=== PATIENT | female | born 1995 | race Caucasian/White ===

== ENCOUNTER 2018-04-16 20:20 | Emergency (ER) | payer BC ==
[2018-04-16] MEDS ORDERED: Ondansetron TAB* 4 MG PO ONE (20:49)
[2018-04-16] MEDS ORDERED: NS 0.9% 1000 ML* 1,000 ML IV ONE (21:14)
[2018-04-16] MEDS ORDERED: diPHENhydraMINE IV* 50 MG/ML 1 ml VIAL (BENADRYL) IV ONE (21:15)
[2018-04-16] MEDS ORDERED: PROCHLORPERAZINE INJ 5 MG/ML 2 ML VIAL IV ONE (21:15)
[2018-04-16] MEDS ORDERED: Ketorolac INJ* 30 MG/ML 1 ML VIAL IV PUSH ONE (21:15)
--- NOTE | 2018-04-16 22:55 | ED ---
Headache - HPI Summary HPI Summary: The pt is a 22 y.o female presenting to the [facility] with a chief complaint of NATHAN. The pt is accompanied by her boyfriend and reports that she has a hx of migraines but this episode is worse than normal. Allergies are noted and reviewed. She describes the NATHAN as constant and the origin of the NATHAN at the " back of the head" which later radiated towards the front of the head. Currently , the NATHAN is diffuse. She has not had a prior ED visit for similar symptoms. Pt denies fevers, current blurry visions, double visions, abd pain, N/V, chest pain , SOB, back pain, sore throat, ear ache, hematuria, burning sensation when urinating, and rashes. She reports of chills, anxiety and depression (she is receiving treatment). The patient rates the pain 7/10 in severity. Symptoms aggravated by nothing. Symptoms alleviated by nothing. - History Of Current Complaint Chief Complaint: EDHeadache Stated Complaint: HEADACHE Time Seen by Provider: 04/16/18 20:57 Hx Obtained From: Patient Onset/Duration: Sudden Onset - 3 hours ago today Initially Headache Was: Initial Pain Scale(0-10)= - 7 Currently Pain Is: Current Pain Scale(0-10)= - 7 Location of Headache: Diffuse Aggravating Factor: Nothing Allevating Factors: Nothing - Allergies/Home Medications Allergies/Adverse Reactions: Allergies Allergy/AdvReac Type Severity Reaction Status Date / Time No Known Allergies Allergy Verified 06/24/15 16:58 PMH/Surg Hx/FS Hx/Imm Hx Sensory History: Denies: Hx Deafness Opthamlomology History: Denies: Hx Legally Blind EENT History: Denies: Hx Deafness Psychiatric History: Reports: Hx Anxiety, Hx Depression - Immunization History Date of Tetanus Vaccine: utd Date of Influenza Vaccine: none Infectious Disease History: No Infectious Disease History: Denies: Traveled Outside the [place] in Last 30 Days - Family History Family History: Reviewed and noncontributory - Social History Occupation: Student Alcohol Use: Rare Substance Use Type: Reports: None Smoking Status (MU): Never Smoked Tobacco Review of Systems Positive: Chills. Negative: Fever Eyes: Other - Negative double vision Negative: Blurred Vision Negative: Sore Throat, Ear Ache Negative: Chest Pain Negative: Shortness Of Breath Negative: Vomiting, Nausea Negative: burning, hematuria Musculoskeletal: Other - Negative back pain Negative: Rash Positive: Headache Positive: Anxious, Depressed All Other Systems Reviewed And Are Negative: No Physical Exam - Summary Physical Exam Summary: Appearance: Alert, conversive, nontoxic appearing Skin: Warm, dry, no mottling, no rashes, no contusions HEENT: EOMI, PERRL, moist mucous membranes Neck: No masses on the neck, supple Respiratory: Clear to auscultation, breath sounds present, no rales, no rhonchi , no wheezes Cardiovascular: RRR, pulses are symmetrical in both lower and upper extremities Abdomen: Soft, non-tender Bowel Sounds: Present Musculoskeletal: No CVA tenderness, no obvious deformity, moving all extremities in a grossly normal manner Neurological: A&Ox3, CN II-XII Intact, moving all extremities symmetrically Psychiatric: Normal affect and mood Triage Information Reviewed: Yes Vital Signs On Initial Exam: Initial Vitals Temp Pulse Resp BP Pulse Ox 98.4 F 89 15 114/78 98 04/16/18 20:23 04/16/18 20:23 04/16/18 20:23 04/16/18 20:23 04/16/18 20:23 Vital Signs Reviewed: Yes Diagnostics - Vital Signs Vital Signs Temp Pulse Resp BP Pulse Ox 04/16/18 20:23 98.4 F 89 15 114/78 98 - Laboratory Lab Statement: Any lab studies that have been ordered have been reviewed, and results considered in the medical decision making process. Headache Course/Dx - Course Course Of Treatment: The pt is 22 y.o female with a chief complaint of NATHAN. The pt has a hx of migraines and she states that this episode is worse than previous episodes. The pt will be signed out to Dr. Umana pending lab work and blood work as well as any imaging tests. The pt dx will be migraines. - Diagnoses Provider Diagnoses: Migraines Discharge - Sign-Out/Discharge Documenting (check all that apply): Sign-Out Patient Signing out patient TO: Rai Umana - Discharge Plan Condition: Stable Referrals: No Primary Care Phys,NOPCP [Primary Care Provider] - - Attestation Statements Document Initiated by Scribe: Yes Documenting Scribe: Zack Foote Provider For Whom Scribe is Documenting (Include Credential): Dr. Myrtle Johnson Scribe Attestation: Zack Shi, scribed for Dr. Myrtle Johnson on 04/16/18 at 2253.
--- NOTE | 2018-04-16 23:26 | ED ---
Course/Dx - Course Course Of Treatment: The pt is 22 y.o female with a chief complaint of NATHAN. The pt has a hx of migraines and she states that this episode is worse than previous episodes. The pt will be signed out to Dr. Umana pending lab work and blood work as well as any imaging tests. The pt dx will be migraines. - Diagnoses Provider Diagnoses: Migraines, Headache Discharge - Sign-Out/Discharge Documenting (check all that apply): Patient Departure - discharge, Receiving Sign-Out Receiving patient FROM: Myrtle Johnson - Discharge Plan Condition: Stable Disposition: HOME Patient Education Materials: General Headache (ED) Referrals: [facility] [Provider Group] - 3 Days Additional Instructions: Return to the emergency department for any new or worsening symptoms. - Billing Disposition and Condition Condition: STABLE Disposition: Home - Attestation Statements Document Initiated by Lenin: Yes Documenting Scribe: Antwan Cuba Provider For Whom Scribe is Documenting (Include Credential): Dr. Rai Umana MD Scribe Attestation: Antwan Shi scribed for Dr. Rai Umana MD on 04/17/18 at 0016. Scribe Documentation Reviewed: Yes Provider Attestation: The documentation as recorded by the Antwan biswas accurately reflects the service I personally performed and the decisions made by , Dr. Rai Umana MD
[2018-04-16 23:41] VITALS: BP 113/78
== END 2018-04-16 23:41 | disposition home or self-care (01) ==
LOC: ED 20:20
DX: G43.909 Migraine, unspecified, not intractable, without status migrainosus (principal)
CPT/HCPCS: 96374; 96375; 99283; A9270-GY; J0780; J1200; J1885

== ENCOUNTER 2018-10-07 13:48 | Emergency (ER) | payer BC ==
--- NOTE | 2018-10-07 14:21 | ED ---
HPI Chest Pain - HPI Summary HPI Summary: This patient is a 23 year old F presenting to [facility] with a chief complaint of intermittent chest pain since 3 days ago. Patient reports that the pain is usually all over but is currently on the right side. The pain lasts anywhere from 1-4 hours and does not radiate. The patient rates the pain 4/10 in severity currently but a 9/10 in severity at its worst. Symptoms aggravated by deep breaths. Patient reports SOB. She has an IUD and has no PMHx of blood clots. Patient has a PSHx of wisdom teeth removal. NKDA. FHx of father having A Fib. - History of Current Complaint Chief Complaint: EDChestPainROMI Time Seen by Provider: 10/07/18 14:08 Hx Obtained From: Patient Onset/Duration: Started Days Ago - 3 days ago, Still Present Timing: Intermittent, Lasting Hours - 1-4 hours Initial Severity: Severe - 9/10 Current Severity: Moderate Pain Intensity: 4 Pain Scale Used: 0-10 Numeric Chest Pain Location: Diffuse - usually, Right Anterior - currently Chest Pain Radiates: No Aggravating Factor(s): Deep Breaths Associated Signs and Symptoms: Positive: Shortness of Breath - Allergy/Home Medications Allergies/Adverse Reactions: Allergies Allergy/AdvReac Type Severity Reaction Status Date / Time No Known Allergies Allergy Verified 06/24/15 16:58 PMH/Surg Hx/FS Hx/Imm Hx Sensory History: Denies: Hx Legally Blind, Hx Deafness Opthamlomology History: Denies: Hx Legally Blind Psychiatric History: Reports: Hx Anxiety, Hx Depression - Surgical History Surgery Procedure, Year, and Place: [place] teeth extraction - Immunization History Date of Tetanus Vaccine: utd Date of Influenza Vaccine: 08/2018 Immunizations Up to Date: Yes Infectious Disease History: No Infectious Disease History: Denies: Traveled Outside the [place] in Last 30 Days - Family History Known Family History: Positive: Cardiac Disease - A Fib in father Family History: Reviewed and noncontributory - Social History Alcohol Use: Rare Substance Use Type: Reports: None Smoking Status (MU): Never Smoked Tobacco Review of Systems Positive: Chest Pain - usually all over but is currently on the right side Positive: Shortness Of Breath All Other Systems Reviewed And Are Negative: Yes Physical Exam - Summary Physical Exam Summary: GENERAL: Patient is a well-developed and nourished __(F)__ who is lying comfortable in the stretcher. Patient is not in any acute respiratory distress. HEAD AND FACE: Normocephalic EYES: PERRLA, EOMI x 2. EARS: Hearing grossly intact. MOUTH: Oropharynx within normal limits. NECK: Supple, trachea is midline, no adenopathy, no JVD, no carotid bruit. CHEST: Symmetric, tenderness over the right rib under the right breast LUNGS: Clear to auscultation bilaterally. No wheezing or crackles. CVS: Regular rate and rhythm, S1 and S2 present, no murmurs or gallops appreciated. ABDOMEN: Soft, non-tender. Bowel sounds are normal. No abdominal abnormal pulsations. EXTREMITIES: Full ROM in all major joints, no edema, no cyanosis or clubbing. NEURO: Alert and oriented x 3. No acute neurological deficits. Speech is normal and follows commands. SKIN: Dry and warm Triage Information Reviewed: Yes Vital Signs On Initial Exam: Initial Vitals Temp Pulse Resp BP Pulse Ox 97.8 F 92 18 127/68 100 10/07/18 13:51 10/07/18 13:51 10/07/18 13:51 10/07/18 13:51 10/07/18 13:51 Vital Signs Reviewed: Yes Diagnostics - Vital Signs Vital Signs Temp Pulse Resp BP Pulse Ox 10/07/18 13:51 97.8 F 92 18 127/68 100 - Laboratory Result Diagrams: 10/07/18 14:20 10/07/18 14:20 Lab Statement: Any lab studies that have been ordered have been reviewed, and results considered in the medical decision making process. - Radiology Chest x-ray Radiology Interpretation Completed By: Radiologist Summary of Radiographic Findings: 14:20. NO ACTIVE CARDIOPULMONARY DISEASE. ED Physician has reviewed this imaging report. - EKG 14:05 Cardiac Rate: NL - 75 BPM EKG Rhythm: Sinus Rhythm Summary of EKG Findings: Normal axis, normal intervals, no ischemic changes Chest Pain Course/Dx - Course Course Of Treatment: This patient is a 23 year old F presenting to [facility] with a chief complaint of intermittent chest pain since 3 days ago. Physical exam: tenderness over the right rib, under the right breast. EKG: normal rate, normal sinus, 75 bpm, normal axis, normal intervals, no ischemic changes. Chest x-ray: no active cardiopulmonary disease. Lab results were normal other than Lactic Acid 0.4 L. I discussed results with patient and she reports feeling better. She is hemodynamically stable and safe for discharge. She will be d/c home with dx of costochondritis. Strict return precautions given and she will otherwise follow up with her PCP. Advised her to take Motrin OTC. - Diagnoses Provider Diagnoses: Costochondritis Discharge - Sign-Out/Discharge Documenting (check all that apply): Patient Departure - D/C home Patient Received Moderate/Deep Sedation with Procedure: No - Discharge Plan Condition: Stable Disposition: HOME Patient Education Materials: Costochondritis (ED) Referrals: [facility] [Outside] - 3 Days Additional Instructions: Follow up with your primary care physician in 1-3 days. RETURN TO THE EMERGENCY DEPARTMENT FOR CHANGING OR WORSENING SYMPTOMS. - Billing Disposition and Condition Condition: STABLE Disposition: Home - Attestation Statements Document Initiated by Nareshibe: Yes Documenting Scribe: Ruel Eubanks Provider For Whom Scribe is Documenting (Include Credential): Terrence Kaiser MD Scribe Attestation: Ruel Shi, scribed for Terrence Kaiser MD on 10/07/18 at 1803. Scribe Documentation Reviewed: Yes Provider Attestation: The documentation as recorded by the Ruel biswas accurately reflects the service I personally performed and the decisions made by , Terrence Kaiser MD Status of Scribe Document: Viewed
[2018-10-07 14:39] LABS: ABS Basophils 0.1 10^3/ul (0-0.2); ABS Eosinophils 0.1 10^3/ul (0-0.6); ABS Lymphocytes 1.5 10^3/ul (1.0-4.8); ABS Monocytes 0.4 10^3/ul (0-0.8); ABS Neutrophils 1.9 10^3/ul (1.5-7.7); ABS Nucleated RBC 0 10^3/ul; Eosinophil % 2.3 %; Hematocrit 37 % (33-41); Hemoglobin 12.3 g/dL (12.0-16.0); Lymphocyte % 38.9 %; Mean Corpuscular HGB Conc 34 g/dL (31-36); Mean Corpuscular Hemoglobin 30 pg (27-31); Mean Corpuscular Volume 89 fL (80-97); Mean Platelet Volume 7.4 fL (7.4-10.4); Nucleated Red Blood Cells % 0.1; Platelet Count 277 10^3/uL (150-450); Red Cell Distribution Width 14 % (10.5-15); White Blood Count 3.9 10^3/uL (3.5-10.8)
--- OUTSIDE RECORDS SUMMARY | 2018-10-07 14:39 | XMS REPORT | Continuity of Care Document ---
:1995 External Reference #:[id number] Author Name FelixtrishLennie Care Team Providers Name Role Phone Jordyn Soto N.P. 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 Payers Date Identification Numbers Payment Provider Subscriber Policy Number: [id number] [employer] Dawna Gagnon PayID: [id number] [address] [address] [place] [address] Advance Directives Description No Information Available Problems Description No Information Family History Date Family Member(s) Observation Comments Father Anxiety Father Hypertension Mother Anxiety First Brother PTSD First Brother Depression Maternal Grandfather Atrial Fibrillation Maternal Grandfather Anxiety Maternal Grandmother Anxiety Social History Type Date Description Comments Sex Unknown Lives With Roommate Tobacco Use Start: Unknown Never Smoked Cigarettes ETOH Use Currently consumes 1-2 drinks per week alcohol Tobacco Use Start: Unknown Patient has never smoked Smoking Status Reviewed: 09/14/18 Patient has never smoked Exercise Does not exercise Type/Frequency Allergies, Adverse Reactions, Alerts Description No Known Drug Allergies Medications Medication Date Status Form Strength Qnty SIG Indications Ordering Provider Celexa Active Tablets 20mg 1 by Unknown 00 mouth every day Hydroxyzine HCL Active Tablets 10mg 1-2 by Unknown 00 mouth four times a day Immunizations Description No Information Available Vital Signs Date Vital Result Comment 09/14/2018 9:08am Height 67 inches 5'7" Weight 150.00 lb had heavy boots on Heart Rate 95 /min BP Systolic 102 mmHg BP Diastolic 69 mmHg O2 % BldC Oximetry 99 % BMI (Body Mass Index) 23.5 kg/m2 Last Menstrual Period [id number] Results Description No Information Available Procedures Description No Information Available Encounters Description No Information Available Plan of Treatment No Information Available
[2018-10-07 14:43] LABS: Activated Partial Thrombo Time 29.9 seconds (26.0-36.3); INR 0.98 (0.77-1.02)
[2018-10-07 14:49] LABS: ALT 17 U/L (7-52); AST 19 U/L (13-39); Albumin 4.3 g/dL (3.2-5.2); Albumin/Globulin Ratio 1.7 (1-3); Alkaline Phosphatase 57 U/L (34-104); Anion Gap 5 mmol/L (2-11); BUN/Creatinine Ratio 12.9 (8-20); Blood Urea Nitrogen 9 mg/dL (6-24); CO2 Carbon Dioxide 24 mmol/L (22-32); Calcium 9.2 mg/dL (8.6-10.3); Chloride 108 mmol/L (101-111); EGFR African American 127.8 (>60); EGFR Non-African American 105.6 (>60); Globulin 2.6 g/dL (2-4); Glucose 91 mg/dL (70-100); Sodium 137 mmol/L (135-145); Total Protein 6.9 g/dL (6.4-8.9)
[2018-10-07 14:52] LABS: HCG Pregnancy < 0.60 mIU/mL
[2018-10-07] MEDS ORDERED: Ketorolac INJ* 60 MG/2 ML VIAL IM ONE (15:00)
[2018-10-07 15:38] VITALS: BP 104/66
== END 2018-10-07 15:38 | disposition home or self-care (01) ==
LOC: ED 13:48
DX: M94.0 Chondrocostal junction syndrome [Tietze] (principal); R06.02 Shortness of breath; Z82.49 Family history of ischemic heart disease and other diseases of the circulatory system
CPT/HCPCS: 36415; 71045; 80053; 83605; 83880; 84484; 84702; 85025; 85379; 85610; 85730; 93005; 96372; 99282; J1885

== ENCOUNTER 2019-02-12 13:00 | Emergency (ER) | payer BC ==
--- OUTSIDE RECORDS SUMMARY | 2019-02-12 13:09 | XMS REPORT | Continuity of Care Document ---
:1995 External Reference #:[id number] Author Name Geno Walden Care Team Providers Name Role Phone Jeanette Cabrera MD Primary Care Physician Unavailable Payers Date Identification Numbers Payment Provider Subscriber Policy Number: [id number] [facility] Polo Gagnon JR PayID: [id number] [address] [address] [place] [address] Effective: 2018 Policy Number: [id number] [facility] Polo Vaz Jr. Group Number: [id number] [address] PayID: [id number] [place] [address] Family History Date Family Member(s) Observation Comments Father Anxiety Father Hypertension Mother Anxiety Siblings 1 First Brother PTSD First Brother Depression Maternal Grandfather Atrial Fibrillation Maternal Grandfather Anxiety Maternal Grandmother Anxiety Social History Type Date Description Comments Sex Unknown Lives With Roommate Tobacco Use Start: Unknown Never Smoked Cigarettes ETOH Use Currently consumes 1-2 drinks per week alcohol Tobacco Use Start: Unknown Patient has never smoked Recreational Drug Use Never Used Drugs Smoking Status Reviewed: 09/14/18 Patient has never smoked Exercise Type/Frequency Does not exercise Exercise Type/Frequency Exercises regularly Exercise Type/Frequency Exercises rarely Allergies, Adverse Reactions, Alerts Description No Known Drug Allergies Medications Active Medications SIG Qnty Indications Ordering Provider Date Citalopram 1 by mouth 90tabs Pina Billingsley MD 02/07/2019 Hydrobromide every day 20mg Tablets Hydroxyzine HCL 1-2 by mouth Unknown 10mg four times a Tablets day Magnesium 27 Unknown 500(27Mg) mg Tablets Multivitamin Adult Unknown Tablets History Medications Celexa 1 by mouth every 90tabs Pina Billingsley MD - 20mg Tablets day 02/07/2019 Vital Signs Date Vital Result Comment 02/07/2019 8:22am Height 67 inches 5'7" Weight 159.00 lb Heart Rate 68 /min BP Systolic 95 mmHg right arm BP Diastolic 60 mmHg right arm Body Temperature 96.5 F O2 % BldC Oximetry 99 % BMI (Body Mass Index) 24.9 kg/m2 09/14/2018 9:08am Height 67 inches 5'7" Weight 150.00 lb had heavy boots on Heart Rate 95 /min BP Systolic 102 mmHg BP Diastolic 69 mmHg O2 % BldC Oximetry 99 % BMI (Body Mass Index) 23.5 kg/m2 Last Menstrual Period [id number] Results Test Date Facility Test Result H/L Range Note Laboratory test 09/14/2018 [facility] TSH 1.28 mcIU/mL N 0.34- 5.[address] ([place] [address] Stim Horm) [phone] Prolactin 11.3 ng/mL N 1.0-25.0 CBC Auto Diff 09/14/2018 [facility] White Blood 4.2 10^3/uL N 3.5-10.[address] [place] [address] [phone] Red Blood Count 4.23 10^6/uL N 4.00-5.40 Hemoglobin 12.8 g/dL N 12.0-16.0 Hematocrit 38 % N 35-47 Mean Corpuscular Volume 90 fL N 80-97 Mean Corpuscular Hemoglobin 30 pg N 27-31 Mean Corpuscular HGB Conc 34 g/dL N 31-36 Red Cell Distribution Width 13 % N 10.5-15 Platelet Count 301 10^3/uL N 150-450 Mean Platelet Volume 7.8 fL N 7.4-10.4 Abs Neutrophils 1.6 10^3/uL N 1.5-7.7 Abs Lymphocytes 1.9 10^3/uL N 1.0-4.8 Abs Monocytes 0.5 10^3/uL N 0-0.8 Abs Eosinophils 0.1 10^3/uL N 0-0.6 Abs Basophils 0.1 10^3/uL N 0-0.2 Abs Nucleated RBC 0 10^3/uL Granulocyte % 38.7 % Lymphocyte % 45.6 % Monocyte % 11.7 % Eosinophil % 2.4 % Basophil % 1.6 % Nucleated Red Blood Cells % 0 Encounters Type Date Location Provider Dx Diagnosis Office Visit 09/14/2018 [facility] Jordyn Soto N.P. N94.6 Dysmenorrhea, 9:00a [facility] unspecified N93.8 Other specified abnormal uterine and vaginal bleeding Plan of Treatment 02/07/2019 - Jeanette Cabrera MDR00.2 PalpitationsComments:Please go to urgent care to obtain ECG when chest pain or palpitaion recurs. Consider Holter cardiacmonitoring when palpitation recurs frequently.F41.9 Anxiety disorder, unspecifiedComments:Continue citolopram 20mg for nowFollow up:Sign ALVINA to obtain previous medical record Follow up in 1 year
--- NOTE | 2019-02-12 13:26 | UC ---
Throat Pain/Nasal Chris HPI - HPI Summary HPI Summary: 23 yo female presents with sore throat and sinus congestion. She tells me that for the last week she has been having sinus congestion and post nasal drip. 3 days ago she started having a sore throat. She has been taking dayquill, nyquill , and mucinex with no relief. She is eating, drinking, and tolerating po well. Denies fever, chills, cough, rash. - History of Current Complaint Chief Complaint: UCGeneralIllness Stated Complaint: SORE THROAT BODY ACHES Time Seen by Provider: 02/12/19 13:26 Hx Obtained From: Patient Hx Last Menstrual Period: 02/02/19 Onset/Duration: Gradual Onset Severity: Moderate Pain Intensity: 5 Pain Scale Used: 0-10 Numeric - Allergies/Home Medications Allergies/Adverse Reactions: Allergies Allergy/AdvReac Type Severity Reaction Status Date / Time No Known Allergies Allergy Verified 02/12/19 13:22 Home Medications: Home Medications Citalopram TAB* 20 mg PO DAILY 02/12/19 [History Confirmed 02/12/19] PMH/Surg Hx/FS Hx/Imm Hx Psychological History: Anxiety, Depression - Surgical History Surgical History: Yes Surgery Procedure, Year, and Place: [place] teeth extraction - Family History Known Family History: Positive: Cardiac Disease - A Fib in father - Social History Alcohol Use: Rare Substance Use Type: None Smoking Status (MU): Never Smoked Tobacco Review of Systems All Other Systems Reviewed And Are Negative: Yes Constitutional: Positive: Negative Skin: Positive: Negative Eyes: Positive: Negative ENT: Positive: Sore Throat, Nasal Discharge, Sinus Congestion Respiratory: Positive: Negative Cardiovascular: Positive: Negative Gastrointestinal: Positive: Negative Neurovascular: Positive: Negative Neurological: Positive: Negative Psychological: Positive: Negative Physical Exam - Summary Physical Exam Summary: GENERAL: NAD. WDWN. No pain distress. SKIN: No rashes, sores, lesions, or open wounds. HEENT: Head: AT/NC Eyes: EOM intact. Conjunctiva clear without inflammation or discharge. Ears: Hearing grossly normal. TMs intact, no bulging, erythema, or edema. Nose: Nasal mucosa mildly swollen and erythematous without discharge. TTP maxillary sinus. Positive post nasal drip Throat: Posterior oropharynx without exudates, erythema, or tonsillar enlargement. Uvula midline. NECK: Supple. Nontender. No lymphadenopathy. CHEST: CTAB. No r/r/w. No accessory muscle use. Breathing comfortably and in no distress. CV: RRR. Without m/r/g. Pulses intact. NEURO: Alert. PSYCH: Age appropriate behavior. Triage Information Reviewed: Yes Vital Signs: Initial Vital Signs Temp 98.5 F 02/12/19 13:18 Pulse 86 02/12/19 13:18 Resp 16 02/12/19 13:18 BP 90/63 02/12/19 13:18 Pulse Ox 100 02/12/19 13:18 Laboratory Tests 02/12/19 13:27 Group A Strep Rapid Negative Vital Signs Reviewed: Yes Throat Pain/Nasal Course/Dx - Course Course Of Treatment: Sinusitis - Differential Dx/Diagnosis Provider Diagnosis: Sinusitis Discharge - Sign-Out/Discharge Documenting (check all that apply): Patient Departure All imaging exams completed and their final reports reviewed: No Studies - Discharge Plan Condition: Stable Disposition: HOME Prescriptions: Amoxicillin PO (*) [Amoxicillin 875 MG (*)] 875 mg PO BID #14 tab Patient Education Materials: Sinusitis (ED) Referrals: No Primary Care Phys,NOPCP [Primary Care Provider] - Additional Instructions: If you develop a fever, shortness of breath, chest pain, new or worsening symptoms - please call your PCP or go to the ED immediately. Continue taking your over the counter medications - Billing Disposition and Condition Condition: STABLE Disposition: Home - Attestation Statements Provider Attestation: Per institutional requirements, I have reviewed the chart, however, I was not consulted specifically or made aware of this patient by the midlevel provider. I did not personally evaluate, interact with , or disposition this patient.
[2019-02-12 13:34] VITALS: BP 90/63
== END 2019-02-12 13:43 | disposition home or self-care (01) ==
LOC: UCEAST 13:00
DX: J32.9 Chronic sinusitis, unspecified (principal); J02.9 Acute pharyngitis, unspecified; F41.9 Anxiety disorder, unspecified; F32.9 Major depressive disorder, single episode, unspecified
CPT/HCPCS: 87651; 99212; G0463

== ENCOUNTER 2019-05-04 18:03 | Emergency (ER) | payer BC ==
--- OUTSIDE RECORDS SUMMARY | 2019-05-04 18:18 | XMS REPORT | Continuity of Care Document ---
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 [phone] Organized Health Care Education/Training Program Problems Active Problems Provider Date Palpitations Jeanette Cabrera MD Onset: 02/07/2019 Anxiety state Jeanette Cabrera MD Onset: 02/07/2019 Dysmenorrhea Jeanette Cabrera MD Onset: 02/07/2019 Social History Type Date Description Comments Sex Unknown Tobacco Use Start: Unknown Never Smoked Cigarettes ETOH Use Currently consumes 1-2 drinks per week alcohol Tobacco Use Start: Unknown Patient has never smoked Recreational Drug Use Never Used Drugs Smoking Status Reviewed: 04/23/19 Patient has never smoked Exercise Type/Frequency Exercises rarely Allergies, Adverse Reactions, Alerts Description No Known Drug Allergies Medications Active Medications SIG Qnty Indications Ordering Provider Date Citalopram 2 tab by mouth 90tabs Pina Billingsley MD 02/07/2019 Hydrobromide every day 20mg Tablets Hydroxyzine HCL 1-2 tablets as Unknown 10mg needed at Tablets bedtime Magnesium 27 Unknown 500(27Mg) mg Tablets Multivitamin Adult Unknown Tablets Immunizations Description No Information Available Vital Signs Date Vital Result Comment 04/23/2019 8:07am Height 67 inches 5'7" Weight 157.00 lb Heart Rate 78 /min BP Systolic Sitting 106 mmHg BP Diastolic Sitting 75 mmHg Body Temperature 97.7 F O2 % BldC Oximetry 98 % BMI (Body Mass Index) 24.6 kg/m2 02/07/2019 8:22am Height 67 inches 5'7" Weight 159.00 lb Heart Rate 68 /min BP Systolic 95 mmHg right arm BP Diastolic 60 mmHg right arm Body Temperature 96.5 F O2 % BldC Oximetry 99 % BMI (Body Mass Index) 24.9 kg/m2 Results Description No Information Available Procedures Description No Information Available Medical Devices Description No Information Available Encounters Type Date Location Provider Dx Diagnosis Office Visit 02/07/2019 8:00a [facility] Jeanette Cabrera MD R00.2 Palpitations - [address] F41.9 Anxiety disorder, unspecified Assessments Date Code Description Provider 04/23/2019 F41.9 Anxiety disorder, unspecified Jeanette Cabrera MD 04/23/2019 J06.9 Acute upper respiratory infection, unspecified Jeanette Cabrera MD 02/07/2019 R00.2 Palpitations Jeanette Cabrera MD 02/07/2019 F41.9 Anxiety disorder, unspecified Jeanette Cabrera MD Plan of Treatment 04/23/2019 - Jeanette Cabrera MDF41.9 Anxiety disorder, unspecifiedComments:Increase Citalopram 40mg daily, continue to work with therapist.J06.9 Acute upper respiratory infection, unspecified Functional Status Description No Information Available Mental Status Description No Information Available Referrals Description No Information Available
[2019-05-04 20:31] LABS: ABS Basophils 0.1 10^3/ul (0-0.2); ABS Eosinophils 0.4 10^3/ul (0-0.6); ABS Lymphocytes 2.1 10^3/ul (1.0-4.8); ABS Monocytes 0.5 10^3/ul (0-0.8); ABS Neutrophils 3.5 10^3/ul (1.5-7.7); Eosinophil % 6.6 %; Hematocrit 38 % (35-47); Hemoglobin 13.2 g/dL (12.0-16.0); Lymphocyte % 32.2 %; Mean Corpuscular HGB Conc 34 g/dL (31-36); Mean Corpuscular Hemoglobin 31 pg (27-31); Mean Corpuscular Volume 90 fL (80-97); Mean Platelet Volume 7.1 fL (7.4-10.4); Platelet Count 323 10^3/uL (150-450); Red Blood Count 4.28 10^6 /uL (3.70-4.87); Red Cell Distribution Width 13 % (10-15); White Blood Count 6.5 10^3/uL (3.5-10.8)
[2019-05-04 20:49] LABS: ALT 12 U/L (7-52); AST 13 U/L (13-39); Albumin 4.5 g/dL (3.2-5.2); Albumin/Globulin Ratio 1.5 (1-3); Alkaline Phosphatase 64 U/L (34-104); Anion Gap 5 mmol/L (2-11); BUN/Creatinine Ratio 18.9 (8-20); Blood Urea Nitrogen 14 mg/dL (6-24); C Reactive Protein < 1.00 mg/L (<8.01); CO2 Carbon Dioxide 25 mmol/L (22-32); Calcium 9.6 mg/dL (8.6-10.3); Chloride 106 mmol/L (101-111); EGFR African American 119.9 (>60); EGFR Non-African American 99.1 (>60); Globulin 3.1 g/dL (2-4); Glucose 90 mg/dL (70-100); Potassium 4.1 mmol/L (3.5-5.0); Sodium 136 mmol/L (135-145); Total Protein 7.6 g/dL (6.4-8.9)
[2019-05-04 21:14] LABS: HCG Pregnancy < 0.60 mIU/mL
[2019-05-04] MEDS ORDERED: Lidocaine 2% VISCOUS* 15 ML UDC PO ONE ×2 (21:37→21:54)
[2019-05-04] MEDS ORDERED: Al Hydrox/Mg Hydrox/Simet LIQ* 30 ML UDC PO ONE (21:37)
[2019-05-04] MEDS ORDERED: Pantoprazole TAB * 40 MG TAB PO ONE (21:38)
[2019-05-04] MEDS ORDERED: NS 0.9% 1000 ML** 2,000 ML IV ONE (21:40)
[2019-05-04] MEDS ORDERED: Ondansetron INJ* 2 MG/ML VIAL IV ONE (21:40)
[2019-05-04] MEDS ORDERED: O ndansetron ODT 4MG 5TAB PRPK 4 MG PAK PO ONE (21:54)
--- NOTE | 2019-05-04 22:05 | ED ---
Abdominal Pain/Female - History of Current Complaint Chief Complaint: EDAbdPain Stated Complaint: ABD PAIN PER PT Time Seen by Provider: 05/04/19 21:12 Hx Obtained From: Patient Hx Last Menstrual Period: 02/02/19 ?: No Onset/Duration: Gradual Onset, Lasting Days - 4 Timing: Intermittent Episode Lasting Severity Initially: Moderate Severity Currently: Moderate Pain Intensity: 6 Pain Scale Used: 0-10 Numeric Location: Epigastric Radiates: Yes Radiates to: Back Character: Burning Aggravating Factor(s): Food Alleviating Factor(s): Nothing Associated Signs and Symptoms: Positive: Diaphoresis, Decreased Appetite, Nausea. Negative: Blood in Stool, Vomiting - Risk Factors Ectopic Risk Factor: Negative Allergies/Adverse Reactions: Allergies Allergy/AdvReac Type Severity Reaction Status Date / Time No Known Allergies Allergy Verified 02/12/19 13:22 PMH/Surg Hx/FS Hx/Imm Hx Previously Healthy: Yes Sensory History: Denies: Hx Legally Blind, Hx Deafness Opthamlomology History: Denies: Hx Legally Blind Psychiatric History: Reports: Hx Anxiety, Hx Depression - Surgical History Surgery Procedure, Year, and Place: [place] teeth extraction - Immunization History Date of Tetanus Vaccine: utd Date of Influenza Vaccine: 08/2018 Infectious Disease History: No Infectious Disease History: Denies: Traveled Outside the [place] in Last 30 Days - Family History Known Family History: Positive: Cardiac Disease - A Fib in father Family History: Reviewed and noncontributory - Social History Alcohol Use: Rare Substance Use Type: Reports: None Smoking Status (MU): Never Smoked Tobacco Review of Systems Constitutional: Negative Eyes: Negative ENT: Negative Cardiovascular: Negative Respiratory: Negative Positive: Abdominal Pain Genitourinary: Negative Musculoskeletal: Negative Skin: Negative Neurological: Negative Psychological: Normal All Other Systems Reviewed And Are Negative: Yes Physical Exam Vital Signs On Initial Exam: Initial Vitals Temp Pulse Resp BP Pulse Ox 36.7 C 87 16 131/93 97 05/04/19 18:07 05/04/19 18:07 05/04/19 18:07 05/04/19 18:07 05/04/19 18:07 Procedures - Sedation Patient Received Moderate/Deep Sedation with Procedure: No Diagnostics - Vital Signs Vital Signs Temp Pulse Resp BP Pulse Ox 05/04/19 21:34 37.1 C 82 18 116/86 97 05/04/19 20:18 37.3 C 76 18 111/71 100 05/04/19 18:07 36.7 C 87 16 131/93 97 - Laboratory Lab Results: Lab Results 05/04/19 05/04/19 05/04/19 Range/Units 20:19 20:19 20:19 WBC 6.5 (3.5-10.8) 10^3/uL RBC 4.28 (3.70-4.87) 10^6 /uL Hgb 13.2 (12.0-16.0) g/dL Hct 38 (35-47) % MCV 90 (80-97) fL MCH 31 (27-31) pg MCHC 34 (31-36) g/dL RDW 13 (10-15) % Plt Count 323 (150-450) 10^3/uL MPV 7.1 L (7.4-10.4) fL Neut % (Auto) 53.2 % Lymph % (Auto) 32.2 % [place] % (Auto) 7.0 % Eos % (Auto) 6.6 % Baso % (Auto) 1.0 % Absolute Neuts (auto) 3.5 (1.5-7.7) 10^3/ul Absolute Lymphs (auto) 2.1 (1.0-4.8) 10^3/ul Absolute Monos (auto) 0.5 (0-0.8) 10^3/ul Absolute Eos (auto) 0.4 (0-0.6) 10^3/ul Absolute Basos (auto) 0.1 (0-0.2) 10^3/ul Absolute Nucleated RBC 0.0 10^3/ul Nucleated RBC % 0.0 Sodium 136 (135-145) mmol/L Potassium 4.1 (3.5-5.0) mmol/L Chloride 106 (101-111) mmol/L Carbon Dioxide 25 (22-32) mmol/L Anion Gap 5 (2-11) mmol/L BUN 14 (6-24) mg/dL Creatinine 0.74 (0.51-0.95) mg/dL Est GFR ( Amer) 119.9 (>60) Est GFR (Non-Af Amer) 99.1 (>60) BUN/Creatinine Ratio 18.9 (8-20) Glucose 90 (70-100) mg/dL Lactic Acid 0.5 (0.5-2.0) mmol/L Calcium 9.6 (8.6-10.3) mg/dL Total Bilirubin 0.30 (0.2-1.0) mg/dL AST 13 (13-39) U/L ALT 12 (7-52) U/L Alkaline Phosphatase 64 (34-104) U/L C-Reactive Protein < 1.00 (<8.01) mg/L Total Protein 7.6 (6.4-8.9) g/dL Albumin 4.5 (3.2-5.2) g/dL Globulin 3.1 (2-4) g/dL Albumin/Globulin Ratio 1.5 (1-3) Lipase 71 (11.0-82.0) U/L Beta HCG, Quant < 0.60 mIU/mL Pertinent Lab Values Are: WNL Result Diagrams: 05/04/19 20:19 05/04/19 20:19 Lab Statement: Any lab studies that have been ordered have been reviewed, and results considered in the medical decision making process. - Ultrasound GB Ultrasound Interpretation Completed By: Radiologist Summary of Ultrasound Findings: WNL Abdominal Pain Fem Course/Dx - Course Course Of Treatment: This is a 23-year-old female with a past medical history of gastritis, most recently a year and a half to 2 years ago. She reports for the past 3 days she has had progressive epigastric discomfort which radiates into her back, presently a 6 out of 10 intensity. It was somewhat intermittent in nature at first. 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 She reports mucousy stool, but no blood or melena. She reports nausea but no vomiting. She reports sweats she took herself off her omeprazole due to concerns of interactions with her other medications. He denies chest pain. She reports some increase in pain after eating certain foods, most recently this morning after eating a bagel with cheese. Her bowel movement frequency is normal. She denies fevers. Gallbladder ultrasound is negative, epigastrium is exquisitely tender. There are no peritoneal signs. I do not suspect perforated peptic ulcer. Plan for bland diet, plenty of liquids, restart PPI, viscous lidocaine as tolerated. Zofran as tolerated. Close outpatient follow-up, as this is been recurrent, she may benefit from GI referral by primary care. - Diagnoses Differential Diagnosis: Positive: Gall Bladder Disease, Peptic Ulcer Disease. Negative: Abdominal Aortic Aneurysm Provider Diagnoses: Gastritis Discharge ED - Sign-Out/Discharge Documenting (check all that apply): Patient Departure - Discharge Plan Condition: Stable Disposition: HOME Prescriptions: Lidocaine 2% VISCOUS* 15 ml PO Q8H PRN #100 ml PRN Reason: Pain - Severe Ondansetron ODT TAB* [Zofran 4 MG Odt TAB*] 4 mg PO Q8H PRN #15 tab.odt PRN Reason: Nausea/Vomiting Pantoprazole TAB * [Protonix TAB*] 40 mg PO DAILY #30 tab Patient Education Materials: Gastritis (ED) Forms: *Work Release Referrals: Jeanette Cabrera MD [Primary Care Provider] - 2 Days Additional Instructions: BLAND FOODS, PLENTY OF LIQUIDS. MEDS PRESCRIBED - Billing Disposition and Condition Condition: STABLE Disposition: Home - Attestation Statements Document Initiated by Scribe: No
[2019-05-04 23:31] VITALS: BP 118/79
== END 2019-05-04 23:30 | disposition home or self-care (01) ==
LOC: ED 18:03
DX: K29.70 Gastritis, unspecified, without bleeding (principal); R61 Generalized hyperhidrosis; R11.0 Nausea; Z32.02 Encounter for pregnancy test, result negative
CPT/HCPCS: 36415; 76705; 80053; 83605; 83690; 84702; 85025; 86140; 96361; 96374; 99283; A9270-GY; J2405

== ENCOUNTER 2019-07-04 23:21 | Emergency (ER) | payer BC ==
[2019-07-04] MEDS ORDERED: Albuterol/Ipratropium NEB.SOL* Albuterol 2.5 MG/Ipratropium 0.5 MG 3 ML INH ONE (23:49)
--- NOTE | 2019-07-04 23:54 | ED ---
Respiratory - HPI Summary HPI Summary: Patient is a 24 y/o F presenting to [facility] with complaints of productive cough, SOB, pleuritic chest pain, and light-headedness. Patient reports that her cough has been intermittently present for the past week. Cough is productive of green/ yellow mucous. She additionally states that she has been experiencing SOB and a "farting" noise from her lungs. Sx have worsened over the past few days. Today, her cough was mostly "fine". However, patient states that, later ton, , while eating food, she had onset of a prolonged and more severe episode of SOB. [facility]. Patient states that she becomes light- headed with her SOB but notes that she was not coughing with sean's episode of SOB. SOB has since resolved. Deep breaths are noted to produce chest pain. Patient also notes that she has been sleeping for longer periods of time since the cough onset. No urinary Sx noted. On triage, pain is denied. Lying flat is noted to aggravate Sx. She states that she has not taken any medications for her Sx. No Hx of asthma or inhaler usage noted. Patient is on hydroxyzine 10 mg and citalopram 40 mg. PSHx of wisdom teeth removal noted. FMHx of sleep apnea in father reported. Home medications and allergies are reviewed. Patient's boyfriend is present in room. - History of Current Complaint Chief Complaint: EDShortnessOfBreath Stated Complaint: DIFFICULTY BREATHING PER PT Time Seen by Provider: 07/04/19 23:29 Hx Obtained From: Patient Onset/Duration: Lasting Weeks, Resolved - SOB, Worse Since Timing: Intermittent Episodes Lasting: Current Severity: None - pain denied Pain Intensity: 0 Character: Cough (Productive), Orthopnea Sputum Color: Yellow, Green Aggravating Factor(s): Other - lying flat Alleviating Factor(s): Nothing Associated Signs and Symptoms: SOB, Dizziness - light-headedness, Pleuritic Chest Pain - Allergy/Home Medications Allergies/Adverse Reactions: Allergies Allergy/AdvReac Type Severity Reaction Status Date / Time No Known Allergies Allergy Verified 02/12/19 13:22 Home Medications: Home Medications hydrOXYzine HCL [Hydroxyzine HCl] 10 mg PO BID 07/04/19 [History Confirmed 07/04] PMH/Surg Hx/FS Hx/Imm Hx Respiratory History: Denies: Hx Asthma Sensory History: Denies: Hx Legally Blind, Hx Deafness Opthamlomology History: Denies: Hx Legally Blind EENT History: Denies: Hx Deafness Psychiatric History: Reports: Hx Anxiety, Hx Depression - Surgical History Surgery Procedure, Year, and Place: [place] teeth extraction - Immunization History Date of Tetanus Vaccine: utd Date of Influenza Vaccine: Fall 2018 Infectious Disease History: No Infectious Disease History: Denies: Traveled Outside the [place] in Last 30 Days - Family History Known Family History: Positive: Cardiac Disease - A Fib in father, Respiratory Disease - sleep apnea - Social History Alcohol Use: Rare Substance Use Type: Reports: None Smoking Status (MU): Never Smoked Tobacco Review of Systems - ROS Summary Review of Systems Summary: Home Medications Medication Instructions Recorded Confirmed Type Citalopram TAB* [Celexa TAB*] 40 mg PO DAILY 02/12/19 07/04/19 History hydrOXYzine HCL [Hydroxyzine HCl] 10 mg PO BID 07/04/19 07/04/19 History Constitutional: Other - positive - increased amount of sleep Positive: Chest Pain - pleuritic Respiratory: Other - positive - "farting" noise from lungs Positive: Shortness Of Breath, Cough Positive: no symptoms reported - no urinary Sx reported Neurological: Other - positive - light-headedness All Other Systems Reviewed And Are Negative: Yes Physical Exam - Summary Physical Exam Summary: General: Well-developed, Well-nourished female. No acute distress. HEENT: Normocephalic, Atraumatic. Eyes: Conjuctiva normal, PERRL. Oropharynx: Clear, mucous membranes moist, (-) exudates. Neck: Soft, FROM, (-) lymphadenopathy, (-) thyromegaly, (-) JVD. Cardiovascular: Normal sinus rhythm, (-) murmur. Lungs: Prolonged expiratory phase with fair air exchange, no definite wheezing, (-) rales, (-) rhonchi. Abdomen: Soft, non-tender, non-distended, (-) organomegaly, normal bowel sounds. Back: (-) CVA tenderness Extremities: No edema. Skin: Warm, dry, (-) rash. Neuro: Alert and oriented x3, no focal deficits. Psychiatric: Mood normal, affect normal. Triage Information Reviewed: Yes Vital Signs On Initial Exam: Initial Vitals Temp Pulse Resp BP Pulse Ox 98.2 F 100 16 110/87 100 07/04/19 23:23 07/04/19 23:23 07/04/19 23:23 07/04/19 23:23 07/04/19 23:23 Vital Signs Reviewed: Yes Procedures - Sedation Patient Received Moderate/Deep Sedation with Procedure: No Diagnostics - Vital Signs Vital Signs Temp Pulse Resp BP Pulse Ox 07/04/19 23:31 118/80 07/04/19 23:30 93 100 07/04/19 23:23 98.2 F 100 16 110/87 100 - Laboratory Result Diagrams: 07/05/19 01:10 07/05/19 01:10 Lab Statement: Any lab studies that have been ordered have been reviewed, and results considered in the medical decision making process. - Radiology CXR Radiology Interpretation Completed By: ED Physician Summary of Radiographic Findings: CXR shows no infiltrate, no pleural effusion, pending official report. Re-Evaluation - Re-Evaluation First Eval Re-Evaluation Time: 00:48 Comment: CXR was discussed with the patient. Patient is agreeable with bloodwork. Disposition - Course Course Of Treatment: 24-year-old female presenting with shortness of breath tonight. She states she has felt like she has a cold and congestion over the last week. Symptoms really weren't that significant. She did feel herself wheezing intermittently. Has no history of wheezing or asthma. Did not take anything at home for her symptoms. Tonight she had an episode where she just wasn't able to catch her breath. Was not associated with coughing. Patient had DuoNeb which did not change her symptoms. Chest x-ray which showed no obvious infiltration. Patient requested d-dimer. Blood work was all essentially negative. Patient started on Augmentin. Albuterol inhaler as needed. Prednisone for 5 days. Follow up PCP. Follow-up sooner for any worsening symptoms. During ED course, patient received prednisone 40 mg PO, duoneb 1 neb INH, and augmentin 875 mg PO. - Diagnoses Provider Diagnoses: Bronchitis with bronchospasm Discharge ED - Sign-Out/Discharge Documenting (check all that apply): Patient Departure - discharge - Discharge Plan Condition: Stable Disposition: HOME Prescriptions: Albuterol HFA INHALER* [Ventolin HFA Inhaler*] 1 puff INH Q4H PRN #1 mdi PRN Reason: Sob/Wheezing Amoxicillin/Clavulanate TAB* [Augmentin TAB 875*] 875 mg PO BID #14 tab predniSONE [Prednisone 20 MG TAB] 40 mg PO DAILY #10 tablet Patient Education Materials: Acute Bronchitis (ED), Bronchospasm (ED) Referrals: Jeanette Cabrera MD [Primary Care Provider] - 3 Days Additional Instructions: PLEASE RETURN TO ED FOR ANY NEW OR WORSENING SYMPTOMS. PLEASE FOLLOW UP WITH YOUR PRIMARY CARE PHYSICIAN WITHIN THREE DAYS. - Billing Disposition and Condition Condition: STABLE Disposition: Home - Attestation Statements Document Initiated by Efrae: Yes Documenting Scribe: JENNIFER MCLAIN Provider For Whom Lenin is Documenting (Include Credential): ADAN PIEDRA MD Scribe Attestation: JENNIFER Shi, scribed for ADAN PIEDRA MD on 07/05/19 at 0540. Scribe Documentation Reviewed: Yes Provider Attestation: The documentation as recorded by the JENNIFER biswas accurately reflects the service I personally performed and the decisions made by me, ADAN PIEDRA MD Status of Scribe Document: Viewed
[2019-07-05] MEDS ORDERED: Amoxicillin/Clavulanate TAB* 875 MG PO ONE (00:58)
[2019-07-05 01:17] LABS: ABS Basophils 0.1 10^3/ul (0-0.2); ABS Eosinophils 0.2 10^3/ul (0-0.6); ABS Lymphocytes 2.1 10^3/ul (1.0-4.8); ABS Monocytes 0.6 10^3/ul (0-0.8); ABS Neutrophils 3.1 10^3/ul (1.5-7.7); Eosinophil % 3.5 %; Hematocrit 33 % (35-47); Hemoglobin 11.3 g/dL (12.0-16.0); Lymphocyte % 34.6 %; Mean Corpuscular HGB Conc 34 g/dL (31-36); Mean Corpuscular Hemoglobin 30 pg (27-31); Mean Corpuscular Volume 89 fL (80-97); Platelet Count 263 10^3/uL (150-450); Red Blood Count 3.72 10^6 /uL (3.70-4.87); Red Cell Distribution Width 13 % (10-15); White Blood Count 6.1 10^3/uL (3.5-10.8)
[2019-07-05 01:34] LABS: ALT 11 U/L (7-52); AST 15 U/L (13-39); Albumin/Globulin Ratio 1.7 (1-3); Alkaline Phosphatase 52 U/L (34-104); Anion Gap 5 mmol/L (2-11); BUN/Creatinine Ratio 14.7 (8-20); Blood Urea Nitrogen 11 mg/dL (6-24); CO2 Carbon Dioxide 26 mmol/L (22-32); Chloride 107 mmol/L (101-111); EGFR African American 116.9 (>60); EGFR Non-African American 96.6 (>60); Globulin 2.4 g/dL (2-4); Glucose 127 mg/dL (70-100); Potassium 3.3 mmol/L (3.5-5.0); Sodium 138 mmol/L (135-145); Total Protein 6.4 g/dL (6.4-8.9)
[2019-07-05 01:40] LABS: HCG Pregnancy < 0.60 mIU/mL
[2019-07-05 02:04] VITALS: BP 93/52
[2019-07-05 02:58] LABS: Erythrocyte Sed Rate 6 mm/Hr (0-19)
== END 2019-07-05 02:03 | disposition home or self-care (01) ==
LOC: ED 23:21
DX: J20.9 Acute bronchitis, unspecified (principal); R42 Dizziness and giddiness; F41.9 Anxiety disorder, unspecified; F32.9 Major depressive disorder, single episode, unspecified
CPT/HCPCS: 36415; 71046; 80053; 84702; 85025; 85379; 85652; 99283; A9270-GY; J7512